=== PATIENT | female | born 1955 | race Caucasian/White ===

== ENCOUNTER → 2016-09-21 | Outpatient (CLI) | payer OTHER ==
--- NOTE | 2016-09-22 05:46 | WWHP ---
DATE OF SERVICE: 09/21/2016 CHIEF COMPLAINT: The patient is here for her routine gynecologic exam. HPI: This is a 60-year-old G3, P3 with an LMP of 2013. She states it has been about 3 years since her last pelvic exam. She did have a mammogram in 2016. Mammogram was done here and the report indicates that they recommended additional views of the left breast. She states she was not notified of this and did not have additional views done. She is complaining of some light vaginal bleeding that has been on and off during the last 2 months. She states now it is more like light bleeding than just spotting now. She noticed some abdominal bloating initially when she first noted the spotting 2 months ago. She states she no longer feels bloated. The bleeding was not associated with sexual intercourse. She did start taking several [id number] supplements including supplement that was to help with weight loss, one to help with hair growth and some other essential oil pills. She states it was around this time that she started having the spotting and she wonders if it is related to these supplements. PAST MEDICAL HISTORY: Seasonal allergies. She denies any other medical problems. MEDICATIONS: Supplements including "Thrive", which she takes daily for weight loss, hair supplement and she does not know the name of this as well as essential oils taken in pill form. ALLERGIES: No known drug allergies. PAST SURGICAL HISTORY: None. PAST OB HISTORY: Three vaginal deliveries. PAST YEAST WASHER HISTORY: She states periods ended in 2012 and she developed some postmenopausal bleeding earlier this year as above. She has no history of STDs. SOCIAL HISTORY: She denies tobacco and drug use. She says she will occasionally drink wine and can go through a bottle of wine in about one week but typically only buys the wine every couple of months. She has been since 1991 and this is her second marriage. She is currently working at [employer]. 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 FAMILY HISTORY: Mother had an MS and diabetes. Grandmother had lung cancer. REVIEW OF SYSTEMS: Weight has been stable. She denies respiratory, cardiac, or GI problems. PHYSICAL EXAM: Blood pressure 99/66. Height 5 feet 7 inches. Weight 190 pounds. Temperature 97.7, pulse 64. This a well-developed, heavyset white female who is alert and oriented x3 in no acute distress. HEENT is within normal limits. NECK: Supple without mass or thyromegaly. CHEST AND LUNGS: Clear to auscultation. HEART: Regular rate and rhythm. Breasts are without mass or discharge. Axillary exam is negative for adenopathy. BACK: Negative for CVA tenderness. ABDOMEN: Soft, nontender, without palpable masses. PELVIC EXAM: Normal external genitalia with mild atrophy. Cervix reveals polypoid tissue protruding from the cervix. This has a darkish red color and measures approximately 2 x 0.7 x 0.5. There is also some blood at the endocervix and this is of small amount. There is minimal blood noticed in the vagina. There is no evidence of prolapse. There are no cervical lesions other than the polypoid tissue described above. There is no cervical motion tenderness. The uterus is midposition, nongravid size and nontender. There are no palpable adnexal masses or tenderness. Rectovaginal exam is negative for mass or tenderness and is negative for occult blood. EXTREMITIES: Nontender. IMPRESSION: 1. A 60-year-old menopausal female with light postmenopausal bleeding x2 months. 2. Cervical polypoid tissue, which she may be related to the postmenopausal bleeding. 3. Abnormal mammogram done on 01/12/2016 requesting additional views of the left breast, which was not done. PLAN: 1. Pap smear was performed. 2. Self breast examination was discussed. 3. Left diagnostic mammogram will be done and an order slip was given to patient for this. 4. The patient will be scheduled for pelvic ultrasound to further evaluate the postmenopausal bleeding. 5. She will also be scheduled for an endometrial biopsy and removal of the cervical polypoid tissue. 6. We have discussed the importance of having this workup for postmenopausal bleeding and we have also discussed the possibility of uterine cancer or precancerous changes. 7. Screening colonoscopy was recommended and she will look into doing this. 8. I recommended that she discontinue the [id number] supplements that she is taking in the case that this may be related to the postmenopausal bleeding. 9. I have also recommended that she have yearly gynecologic exams.
== END | disposition home or self-care (01) ==
LOC: WWCWWP 10:40
PROVIDERS: ATTEND Obstetrics & Gynecology

== ENCOUNTER → 2016-09-28 | Outpatient (CLI) | payer OTHER ==
--- NOTE | 2016-09-28 13:39 | MM ---
Reason for exam: follow-up at short interval from prior study. Last mammogram was performed 9 months ago. History: Patient is postmenopausal. Physical Findings: Nurse did not find any significant physical abnormalities on exam. MG Diagnostic Mammo LT w CAD LM, LM with magnification, and CC with magnification view(s) were taken of the left breast. Prior study comparison: January 12, 2016, bilateral MG screening mammo w CAD. March 22, 2011, mammogram, performed at [facility]. The breast tissue is heterogeneously dense. This may lower the sensitivity of mammography. Redemonstrated extensive regional calcifications especially in the 3 o'clock position middle depth left breast. As these have increased and are asymmetric to the right, biopsy is recommended. These results were verbally communicated with the patient and result sheet given to the patient on 09/28/16. ASSESSMENT: Suspicious, BI-RAD 4 RECOMMENDATION: Surgical consultation and stereotactic core biopsy of the left breast. Called Dr. Lr with mammographic findings and has scheduled an appointment for the patient for 10/03/16 at 4:[address] Ivey. PRELIMINARY REPORT CALLED AND FAXED TO DR. IVEY ON 09/1216 AT 300/TMP.
--- NOTE | 2016-09-28 13:55 | US ---
EXAMINATION TYPE: US pelvic complete DATE OF EXAM: 09/28/2016 11:09 AM COMPARISON: No previous CLINICAL HISTORY: 60-year-old female N95.0 postmenopausal Bleeding. Intermittent post menopausal blee ding x 2 months, bloating, 3, para 3 Date of LMP: 3 years ago TECHNIQUE: Transabdominal sonographic images of the pelvis were obtained. Transvaginal scanning was medically necessary to better evaluate the anatomy. FINDINGS: Uterus: Anteverted measuring 7.8 x 3.3 x 4.4 cm. Slightly heterogeneous echotexture. Endometrial Stripe: 1.3 cm thickened with some increased vascularity and tiny 4 mm cystic space. Neither ovary could be visualized. No evident adnexal abnormality or cul-de-sac free fluid. IMPRESSION: Endometrium thickened up to 1.3 cm. This is abnormal in a postmenopausal female. Differential conside rations include endometrial hyperplasia, polyps, and endometrial carcinoma. Appropriate further manag ement recommended.
--- NOTE | 2016-09-28 22:04 | WWPCN ---
DATE OF SERVICE: 09/28/2016 PRE-PROCEDURE DIAGNOSIS: Postmenopausal bleeding and endocervical polypoid mass. POST-PROCEDURE DIAGNOSIS: Postmenopausal bleeding and endocervical polypoid mass. PROCEDURE: Removal of the cervical polypoid mass and endometrial biopsy. SURGEON: Apolinar Lr M.D. ANESTHESIA: None. BRIEF DESCRIPTION OF FINDINGS: Tissue is noted protruding from the cervix measuring approximately 2 x 0.7 x 0.5 cm. The tissue is irregular and burgundy in color. There is a small amount of blood surrounding the tissue. The uterus sounded to 8 cm. BRIEF HISTORY AND INDICATIONS: This is a 60-year-old with a last normal menstrual period in 2012. The patient started having light spotting and vaginal bleeding during the past 2 months. On her examination on 09/21/16 some tissue was noted at the cervical os as described above. Please see the 09/21/16 H&P for additional details. TECHNIQUE: The procedure was explained to the patient and all questions were answered. The patient was placed in the lithotomy position. Bimanual examination revealed a nongravid size uterus and there were no palpable adnexal masses or tenderness. The speculum was inserted into the vagina. The cervix and vagina were prepped with Betadine solution. The tissue at the cervical os was grasped with Allis clamp. The tissue was cut with a biopsy instrument in the endocervical canal. No discrete origin point was seen. The endometrial biopsy instrument was placed to the fundus and this measured 8 cm. Negative pressure was applied and a back and forth rotating motion was used. A small amount of tissue was obtained. This was repeated and a small amount of tissue was obtained. The tissue was sent for pathological examination, as was the cervical polypoid tissue. A Kevorkian curette was used to scrape the endocervix in an attempt to minimize tissue remaining from the cervical specimen. Again no discrete origin site was visualized. There was no active bleeding. The estimated blood loss for the procedure was 2 mL. There were no complications. Specimen sent included the endometrial tissue and the cervical polypoid tissue. Post-procedure blood pressure was 125/65 with a pulse of 68. The patient was sent home in stable condition.
== END | disposition home or self-care (01) ==
LOC: RADMAMWWP 09:35
PROVIDERS: ATTEND Obstetrics & Gynecology
DX: R92.8 Other abnormal and inconclusive findings on diagnostic imaging of breast (principal); N84.0 Polyp of corpus uteri; R93.8 Abnormal findings on diagnostic imaging of other specified body structures; N95.0 Postmenopausal bleeding
CPT/HCPCS: 88305; 76856; 76830; G0206

== ENCOUNTER 2020-11-24 08:15 | Day surgery (SDC) | payer BC ==
[2020-11-20 16:32] VITALS: BMI 31.3
[~2020-11-24 08:15] MED LIST: LACTATED RINGERS 1,000 ML IV SCH; LIDOCAINE 1% (10MG/ML) FOR IV START INTRADERMA PRN
[2020-11-24 08:42] VITALS: RESP 16; TEMP 97.7
[2020-11-24] MEDS ORDERED: fentaNYL (PF) 50 MCG/ML 2 ML AMP ONE (09:23)
[2020-11-24] MEDS ORDERED: PROPOFOL 10 MG/ML 20 ML VIAL IV ONE (09:23)
[2020-11-24] MEDS ORDERED: MIDAZOLAM 2 MG/2 ML VIAL ONE (09:23)
--- NOTE | 2020-11-24 09:27 | P.GSHP ---
History of Present Illness H&P Date: 11/24/20 Chief Complaint: Colon cancer screening Patient here today for colonoscopy. She has not had one previously. No bowel complaints. No family history of colon cancer. Past Medical History Past Medical History: No Reported History History of Any Multi-Drug Resistant Organisms: None Reported Past Surgical History: No Surgical Hx Reported Past Anesthesia/Blood Transfusion Reactions: No Reported Reaction Smoking Status: Never smoker - Past Family History Mother Family Medical History: No Reported History Medications and Allergies Home Medications Medication Instructions Recorded Confirmed Type No Known Home Medications 11/20/20 11/20/20 History Allergies Allergy/AdvReac Type Severity Reaction Status Date / Time No Known Allergies Allergy Verified 11/20/20 16:29 Surgical - Exam Vital Signs Temp Pulse Resp BP Pulse Ox 97.7 F 67 16 114/60 96 11/24/20 08:39 11/24/20 08:39 11/24/20 08:39 11/24/20 08:39 11/24/20 08:39 Physical exam: General: Well-developed, well-nourished HEENT: Normocephalic, sclerae nonicteric Abdomen: Nontender, nondistended Extremities: No edema Neuro: Alert and oriented Assessment and Plan (1) Colon cancer screening Narrative/Plan: Will proceed with colonoscopy Current Visit: Yes Status: Acute Code(s): Z12.11 - ENCOUNTER FOR SCREENING FOR MALIGNANT NEOPLASM OF COLON SNOMED Code(s): 335114653
--- NOTE | 2020-11-24 09:56 | P.PCN ---
Date of Procedure: 11/24/20 Procedure(s) Performed: PREOPERATIVE DIAGNOSIS: Colon cancer screening POSTOPERATIVE DIAGNOSIS: Descending colon polyp PROCEDURE: Colonoscopy with snare polypectomy ANESTHESIA: MAC SURGEON: Dominik Irene M.D. SPECIMENS: Descending colon polyp ENDOSCOPIC PROCEDURE: The patient was placed on the endoscopy table in the left decubitus position. The Olympus colonoscope was inserted into the anus and passed under direct visualization to the base of the cecum. The appendiceal orifice was visualized. From that point the scope was slowly withdrawn inspecting all surfaces carefully. There were no neoplastic inflammatory or polypoid lesions throughout the cecum, ascending, and transverse colon. In the descending colon at 65 cm there was a 7 mm pedunculated polyp that was removed using the snare with cautery technique. The remainder of the descending sigmoid and rectum appeared normal. There was no visible diverticulosis. The patient's colon was fairly tortuous. Digital rectal examination was normal. The patient was taken to the recovery room in stable condition per anesthesia guidelines. RECOMMENDATIONS: Await biopsy results. Anticipate follow-up colonoscopy 3-5 years.
[2020-11-24 10:13] VITALS: BP 103/55; PULSE 61
== END 2020-11-24 10:41 | disposition home or self-care (01) ==
LOC: ORWHC2ENDO 08:15
PROVIDERS: ATTEND Surgery
DX: Z12.11 Encounter for screening for malignant neoplasm of colon (principal); K51.40 Inflammatory polyps of colon without complications
CPT/HCPCS: 88305; 45385; J2250; J3010; J2704

== ENCOUNTER → 2021-10-06 | Outpatient (CLI) | payer MEDICARE ==
--- NOTE | 2021-10-06 12:07 | MM ---
Reason for exam: clinical finding. Last mammogram was performed 5 years ago. History: Patient is postmenopausal and has history of breast cancer at age 61. Indicated problem(s): pain in the left breast. Physical Findings: A clinical breast exam by your physician is recommended on an annual basis and results should be correlated with mammographic findings. MG 3D Diag Mammo W/Cad MORGAN Bilateral CC, MLO, LM, CC with magnification, and LM with magnification view(s) were taken. Prior study comparison: September 28, 2016, left breast MG diagnostic mammo LT w CAD. Diffuse bilateral increasing heterogeneous calcifications bilaterally. Biopsy recommended. Results were given to the patient verbally at the time of the exam. ASSESSMENT: Suspicious, BI-RAD 4 RECOMMENDATION: Ultrasound of the left breast. (per order) Stereotactic core biopsy of both breasts. Called office with mammographic findings and has scheduled an appointment for the patient for 10/07/21 at 9:[address] Deshpande. PRELIMINARY REPORT CALLED AND FAXED TO DR. DESHPANDE ON 10/06/21.
--- NOTE | 2021-10-06 12:08 | USB ---
Reason for exam: clinical finding. History: Patient is postmenopausal and has history of breast cancer at age 61. Indicated problem(s): pain in the left breast. Physical Findings: A clinical breast exam by your physician is recommended on an annual basis and results should be correlated with mammographic findings. US Breast LT Left complete breast ultrasound includes all four quadrants, the retroareolar region and axilla. Finding demonstrates a 0.6 x 0.5 x 0.4cm cystic lesion at 2 o'clock, 4cm from nipple and a 0.9 x 1.4 x 0.3cm cystic cluster at 5 o'clock, 3cm from nipple. Results were given to the patient verbally at the time of the exam. ASSESSMENT: Benign, BI-RAD 2 RECOMMENDATION: Stereotactic core biopsy of both breasts. (for calcifications) Called office with mammographic findings and has scheduled an appointment for the patient for 10/07/21 at 9:[address] Deshpande. PRELIMINARY REPORT CALLED AND FAXED TO DR. DESHPANDE ON 10/06/21.
== END | disposition home or self-care (01) ==
LOC: RADMAMWWP 07:38
PROVIDERS: ATTEND Family Medicine
DX: R92.1 Mammographic calcification found on diagnostic imaging of breast (principal); N60.02 Solitary cyst of left breast; Z78.0 Asymptomatic menopausal state; Z85.3 Personal history of malignant neoplasm of breast
CPT/HCPCS: 77066; 76641; G0279; 77062

== ENCOUNTER → 2021-10-07 | Outpatient (CLI) | payer MEDICARE ==
[2021-10-07 14:43] VITALS: BP 117/76; PULSE 65; RESP 16; TEMP 97.8
--- NOTE | 2021-10-07 15:00 | P.GSHP ---
History of Present Illness H&P Date: 10/07/21 Chief Complaint: Abnormal bilateral mammogram Dalia is a 66-year-old white female who underwent a bilateral mammogram on . Heterogeneous calcifications were seen bilaterally. She had not had a mammogram for approximately 6 years. An ultrasound was also performed of the left breast which is felt to be benign BIRADS 2. Secondary to the calcifications it was recommended she undergo a bilateral stereotactic core biopsy. The x-rays were reviewed with Dr. Holder from radiology. The left breast calcifications of concern were in approximately the 3 o'clock position and in the right breast approximately the 12 o'clock position. The patient has not noted any new lumps masses or nodules of concern in her breast. She did have some discomfort in the left breast which corresponded to some cystic changes. She is not complaining of any nipple discharge or skin changes. She has never had any breast surgery. Caffiene: 1 cup/day nicotine:none BCP: none hormones: none chocolate: occasional Family History: maternal grandmother: ? type of cancer Hormonal history: menarche: 14 , breast fed: yes, age at first : 26 menopause: 51 hormones: none Surgical history: none Medical History: none Social History: smoke: none alcohol: occasional drugs: none - Constitutional Constitutional: Denies chills, Denies fever - EENT Eyes: denies blurred vision, denies pain Ears: deny: decreased hearing, tinnitus Ears, nose, mouth and throat: Denies headache, Denies sore throat - Breasts Breasts: bilateral: as per HPI - Cardiovascular Cardiovascular: Denies chest pain, Denies shortness of breath - Respiratory Respiratory: Denies cough, Denies 7 - Gastrointestinal Gastrointestinal: Denies abdominal pain, Denies diarrhea, Denies nausea, Denies vomiting - Genitourinary (Female) Genitourinary: Reports kidney stones, Denies dysuria, Denies hematuria - Menstruation Comment: vaginal spotting, she is getting a pap smear with Dr. Deshpande Menstruation: Reports postmenopausal - Musculoskeletal Musculoskeletal: Reports myalgias - Integumentary Integumentary: Denies pruritus, Denies rash - Neurological Neurological: Denies numbness, Denies weakness - Psychiatric Psychiatric: Denies anxiety, Denies depression - Endocrine Endocrine: Reports fatigue, Denies weight change - Hematologic/Lymphatic Comment: none - Allergic/Immunologic Allergic/Immunologic: Reports as per HPI Past Medical History Past Medical History: No Reported History History of Any Multi-Drug Resistant Organisms: None Reported Past Surgical History: No Surgical Hx Reported Past Anesthesia/Blood Transfusion Reactions: No Reported Reaction Past Psychological History: No Psychological Hx Reported Smoking Status: Never smoker Past Alcohol Use History: None Reported Past Drug Use History: None Reported - Past Family History Mother Family Medical History: No Reported History Medications and Allergies Home Medications Medication Instructions Recorded Confirmed Type No Known Home Medications 11/20/20 10/07/21 History Allergies Allergy/AdvReac Type Severity Reaction Status Date / Time No Known Allergies Allergy Verified 10/07/21 14:40 Surgical - Exam Vital Signs Temp Pulse Resp BP Pulse Ox 97.8 F 65 16 117/76 96 10/07/21 14:40 10/07/21 14:40 10/07/21 14:40 10/07/21 14:40 10/07/21 14:40 BMI: 30.9 - General no distress - Eyes normal ocular movement - Neck trachea midline - Respiratory normal respiratory effort, clear to auscultation - Cardiovascular Rhythm: regular Heart Sounds: normal: S1, S2 - Abdomen Abdomen: soft - Integumentary normal turgor - Neurologic no disoriented, no combative - Musculoskeletal normal gait - Psychiatric oriented to time, oriented to person, oriented to place, speech is normal, memory intact Breast Exam: BRA: 38B inspection: Bilateral 2/3 ptosis Palpation: Right breast: Multi-positional exam fibrocystic changes no dominant masses or nodules of concern Weighted axilla: No adenopathy of concern Left breast: Multiple positional exam fibrocystic changes no dominant masses or nodules of concern Left axilla: No adenopathy of concern Results Bilateral mammogram reviewed with Dr. Holder Assessment and Plan Assessment: Impression: Fibrocystic breast changes Bilateral microcalcifications on mammogram for which stereo biopsy is recommended Plan: Bilateral stereotactic core biopsy of the breast left breast 3 o'clock position, right breast 12 o'clock position Risk and benefits of the procedure discussed with the patient. She understands and wishes to proceed Cc: Dr. Brenna Deshpande
== END ==
LOC: WWCWWP 14:34
PROVIDERS: ATTEND Surgery
DX: N60.11 Diffuse cystic mastopathy of right breast (principal); N60.12 Diffuse cystic mastopathy of left breast; R92.0 Mammographic microcalcification found on diagnostic imaging of breast